=== PATIENT | male | born 1935 | race Caucasian/White ===

== ENCOUNTER → 2016-04-04 | Outpatient (CLI) | payer OTHER ==
[~2016-04-04] MED LIST: CMD5 PO; DOXA2TAB PO; FINA5TAB4 PO; LEVO75TA PO; METO50TA7 PO; MULTTAB5 PO; OXYC-57 PO; [UNRECOGNIZED DRUG - OTHER] PO
--- NOTE | 2016-04-04 15:09 | DIAGNOSTIC IMAGING REPORT ---
KUB CLINICAL HISTORY: N20.0 [id number] COMPARISON STUDY: 07/20/2014 FINDINGS: The renal shadows are largely obscured by overlying bowel gas and fecal material. No definite calculi are evident. There is no pathologic bowel dilatation. IMPRESSION: No urinary tract calculi are visualized on conventional radiographic imaging. Persistent gaseous prominence of the bowel without evidence of bowel obstruction, unchanged from the prior study Electronically signed by: Lavelle Wolf M.D. 04/04/2016 3:08 PM Dictated Date/Time: 04/04/2016 3:06 PM
== END | disposition home or self-care (01) ==
LOC: C.RAD 14:43
PROVIDERS: ATTEND Urology
DX: N20.0 Calculus of kidney (principal)